=== PATIENT | female | born 1985 | race American Indian/Alaskan Native ===

== ENCOUNTER 2022-03-30 06:03 | Day surgery (SDC) | payer MEDICARE ==
[~2022-03-30 06:03] MED LIST: MIDAZOLAM 2 MG/2 ML INJ IV SCH; SODIUM CHLORIDE 0.9% 1000 ML 1,000 ML IV SCH; ceFAZolin/Water 2 GM/20 ML 2 GM/20 ML SYRINGE IV NR; fentaNYL 100 MCG/2 ML INJ IV PRN
[2022-03-30 07:15] LABS: Hematocrit 50.5 % (30.3-42.9); Mean Corpuscular HGB Conc 32 % (30-34); Mean Corpuscular Volume 87 fl (79-97); Platelet Count 211 K/mm3 (140-440); Red Blood Count 5.79 M/mm3 (3.65-5.03); Red Cell Distribution Width 19.2 % (13.2-15.2)
--- NOTE | 2022-03-30 07:27 | Anesthesia Consultation ---
Anesthesia Consult and Med Hx Date of service: 03/30/22 - Airway Anesthetic Teeth Evaluation: Good ROM Head & Neck: Adequate Mental/Hyoid Distance: Adequate Mallampati Class: Class II Intubation Access Assessment: Possibly Difficult - Pre-Operative Health Status ASA Pre-Surgery Classification: ASA4 Proposed Anesthetic Plan: General (Discussed GA vs regional. Patient has had regional in the past and did not like the experience. Prefers GA.) - Pulmonary Hx Smoking: No Hx Respiratory Symptoms: No - Cardiovascular System Hx Hypertension: No (took midodrine this morning) Hx Coronary Artery Disease: Yes (s/p CABG 2016; EF 40-50% on most recent TTE and stress test 2018) Hx Percutaneous Transluminal Coronary Angioplasty (PTCA): Yes (2018; last dose ASA 03/29/22) Hx Cardia Arrhythmia: No Hx Pacemaker: No Hx Internal Defibrillator: No - Central Nervous System CVA: No Hx Back Pain: Yes Hx Psychiatric Problems: Yes (anxiety) - Gastrointestinal Hx Gastroesophageal Reflux Disease: Yes (controlled with protonix) - Endocrine Hx End Stage Renal Disease: Yes (last HD 03/29/22) Hx Liver Disease: No Hx Insulin Dependent Diabetes: Yes (insulin pump) Hx Thyroid Disease: No - Other Systems Hx Obesity: Yes (BMI 57) - Additional Comments Anesthesia Medical History Comments: Hx mild PONV with previous anesthetics. Most recent cardiac office visit note and cardiac studies reviewed.
[2022-03-30] MEDS ORDERED: LIDOCAINE MPF (2%) 20 MG/1 ML VIAL 5 ML ONE (07:28)
[2022-03-30] MEDS ORDERED: fentaNYL 100 MCG/2 ML INJ ONE (07:28)
[2022-03-30] MEDS ORDERED: ROCURONIUM 50 MG/5 ML INJ IV ONE (07:28)
[2022-03-30] MEDS ORDERED: ONDANSETRON 4 MG/2 ML INJ ONE (07:28)
[2022-03-30] MEDS ORDERED: propofoL 200 MG/20 ML VIAL IV ONE (07:29)
--- NOTE | 2022-03-30 07:29 | Anesthesia Day of Surgery ---
Anesthesia Day of Surgery - Day of Surgery Patient Examined: Yes Patient H&P Reviewed: Yes Patient is NPO: Yes
[2022-03-30 07:32] LABS: Calcium 9.3 mg/dL (8.4-10.2)
[2022-03-30] MEDS ORDERED: HEPARIN 10,000 UNITS/10 ML VIAL ONE ×2 (07:47→09:20)
[2022-03-30] MEDS ORDERED: SODIUM CHLORIDE 0.9% 500 ML 500 ML ONE (07:48)
[2022-03-30] MEDS ORDERED: BUPIVACAINE/PF (0.5%) 5 MG/1 ML 30 ML VIAL INFILTRATI ONE ×2 (07:58→09:16)
[2022-03-30] MEDS ORDERED: VANCOMYCIN/NS 1 GM/250 ML 1 GM/250 ML BAG IV NR (08:00)
[2022-03-30] MEDS ORDERED: VANCOMYCIN 2,000 MG in SODIUM CHLORIDE 0.9% 500 ML 500 ML IV SCH (08:00)
[2022-03-30] MEDS ORDERED: ONDANSETRON 4 MG/2 ML INJ IV PRN (08:30)
[2022-03-30] MEDS ORDERED: HYDROcodone/ACETAMINOPHEN 5-325 MG TAB PO PRN (08:30)
[2022-03-30] MEDS ORDERED: SCOPOLAMINE TRANSDERMAL PATCH 72 HR TD NR (08:30)
[2022-03-30] MEDS ORDERED: fentaNYL 100 MCG/2 ML INJ IV PRN (08:30)
[2022-03-30] MEDS ORDERED: PHENYLEPHRINE/NS 1,000 MCG/10 ML SYRINGE (OR USE) IV ONE (09:10)
[2022-03-30] MEDS ORDERED: PHENYLEPHRINE 10 MG/1 ML INJ SDV ONE (09:12)
[2022-03-30] MEDS ORDERED: HEPARIN 10,000 UNITS/10 ML VIAL IR ONE (09:15)
[2022-03-30] MEDS ORDERED: SODIUM CHLORIDE 0.9% 500 ML IVPB IRRIGATION ONE (09:16)
[2022-03-30] MEDS ORDERED: SODIUM CHLORIDE 0.9% IRR 1,500 ML BOTTLE IR ONE (09:16)
[2022-03-30] MEDS ORDERED: GLYCOPYRROLATE 0.4 MG/2 ML INJ ONE (09:40)
[2022-03-30] MEDS ORDERED: NEOSTIGMINE 10MG/10 ML INJ MDV ONE (09:40)
--- NOTE | 2022-03-30 10:09 | Short Stay Summary ---
Short Stay Documentation Date of service: 03/30/22 Narrative H&P: See H&P - History H&P: obtained from office - Allergies and Medications Current Medications: Allergies amoxicillin Allergy (Verified 03/23/22 14:56) Shortness of Breath clindamycin Allergy (Verified 03/23/22 14:56) Shortness of Breath Sulfa (Sulfonamide Antibiotics) Allergy (Verified 03/23/22 14:56) Nausea Home Medications Medication Instructions Recorded Confirmed Last Taken Type Aspirin [Adult Aspirin] 81 mg PO DAILY 03/23/22 03/23/22 Unknown History Atorvastatin Calcium [Lipitor] 80 mg PO DAILY 03/23/22 03/23/22 Unknown History Cinacalcet HCl [Sensipar] 90 mg PO 3XW 03/23/22 03/23/22 Unknown History Ezetimibe [Zetia] 10 mg PO DAILY 03/23/22 03/23/22 Unknown History Ferric Citrate (Nf) [Auryxia] 210 mg PO TIDWM 03/23/22 03/23/22 Unknown History Fludrocortisone [Florinef Tab] 0.1 mg PO 3XW 03/23/22 03/23/22 Unknown History Insulin Pump Cartridge [Omnipod] 1 each SQ DAILY 03/23/22 03/23/22 Unknown History Midodrine HCl 10 mg PO 3XW 03/23/22 03/23/22 Unknown History Nitroglycerin [Nitrostat] 0.4 mg SL Q5M PRN 03/23/22 03/23/22 Unknown History Pantoprazole Sodium [Protonix] 40 mg PO DAILY 03/23/22 03/23/22 Unknown History Pregabalin [Lyrica] 50 mg PO HS 03/23/22 03/23/22 Unknown History Promethazine [Phenergan] 25 mg PO Q6HR PRN 03/23/22 03/23/22 Unknown History Zolpidem [Ambien] 10 mg PO QHS PRN 03/23/22 03/23/22 Unknown History oxyCODONE /ACETAMINOPHEN [Percocet 1 tab PO Q6HR PRN 03/23/22 03/23/22 Unknown History 5/325] Active Medications Hydrocodone Bitart/Acetaminophen (Hydrocodone/Acetaminophen 5-325 Mg Tab) 2 each PO ONCE PRN PRN Reason: Pain, Moderate (4-6) Stop: 03/30/22 18:00 Fentanyl (Fentanyl 100 Mcg/2 Ml Inj) 100 mcg IV ONCE PRN PRN Reason: sedation for nerve block Fentanyl (Fentanyl 100 Mcg/2 Ml Inj) 50 mcg IV Q5MIN PRN PRN Reason: Pain , Severe (7-10) Stop: 03/30/22 18:00 Sodium Chloride (Nacl 0.9% 1000 Ml) 1,000 mls @ 42 mls/hr IV DIRECT BENJAMIN Stop: 03/30/22 23:59 Cefazolin Sodium 3 gm/ Sodium (Chloride) 100 mls @ 100 mls/30 min IV PREOP BENJAMIN; Protocol Vancomycin HCl 2,000 mg/ (Sodium Chloride) 540 mls @ 250 mls/hr IV ONCE@0800 BENJAMIN Stop: 03/30/22 17:00 Midazolam HCl (Midazolam 2 Mg/2 Ml Inj) 2 mg IV PREOP BENJAMIN Ondansetron HCl (Ondansetron 4 Mg/2 Ml Inj) 4 mg IV ONCE PRN PRN Reason: Nausea And Vomiting Stop: 03/30/22 17:00 Scopolamine (Scopolamine Transdermal Patch 72 Hr) 1 each TD PREOP NR Stop: 03/30/22 18:00 - Brief post op/procedure progress note Date of procedure: 03/30/22 Pre-op diagnosis: End-Stage Renal Disease Post-op diagnosis: same Procedure: Creation of Right Radiocephalic Arteriovenous Fistula Anesthesia: NICA Surgeon: REYNA GUZMÁN Estimated blood loss: minimal Pathology: none Condition: stable - Disposition Condition at discharge: Good Disposition: 01 HOME / SELF CARE / HOMELESS Short Stay Discharge Plan Activity: other (No heavy lifting with right arm for 2 weeks. Use stress ball with right hand as often as possible.) Wound: open to air, keep clean and dry, other (Okay to wash the right arm incision with soap and water but do not soak in water for 2 weeks.) Follow up with: REYNA GUZMÁN MD [Staff Physician] - 14 Days Prescriptions: HYDROcodone/APAP 7.5-325 [[place] 7.5/325] 1 each PO Q6HR PRN #30 tablet PRN Reason: Pain
--- NOTE | 2022-03-30 10:14 | Operative Report ---
Operative Report Operative Report: Date of procedure: 03/30/2022 Pre-operative diagnosis: End-Stage Renal Disease Post-operative diagnosis: End-Stage Renal Disease Procedure(s): Creation of Right Medardo Fistula Surgeon: Meek Acuña MD Project Accountant: None Anesthesia: General Endotracheal Anesthesia EBL: Minimal Counts: Correct Complications: None Condition: Stable Findings: Successful creation of right arm AV fistula with palpable thrill at the completion of the case. Specimen: None Indication: The patient is a 36-year-old female with a history of end-stage renal disease who is on hemodialysis through a permacath secondary to recent thrombosis of her right arm brachiobasilic arteriovenous fistula. She is in need of long-term dialysis access and an ultrasound demonstrated she had adequate cephalic vein for creation of a radiocephalic arteriovenous fistula. She was given the risk, benefits, and alternative procedures and consented to the procedure. Description of Procedure: The patient was brought to the operating room and laid in supine position. After timeout was performed general endotracheal anesthesia was achieved and her right arm was prepped and draped in normal sterile fashion. A longitudinal incision was then created on the distal wrist, centered between the cephalic vein and the radial artery. The dissection was carried down to the radial artery using sharp dissection and the radial artery was dissected circumferentially and controlled with vessel loops. The cephalic vein was then dissected circumferentially, ligating side branches with 3-0 silk ties and dividing them. The cephalic vein was then divided distally transpose to the radial artery. A 3 Gallito was then advanced through the cephalic vein proximally to ensure patency. The vein was then flushed with heparinized saline and control of the bulldog clamp. The patient was systemically heparinized with 3000 units of heparin IV and the radial artery clamped with DeBakey clamps. An arteriotomy was then created using an 11 blade and Zazueta scissors. An end-to-side anastomosis was created between the cephalic vein and the radial artery using a single 6-0 Prolene in running fashion. Prior to completing the anastomosis I flashed the artery both retrograde and antegrade and advanced a 3 Gallito into the proximal portion of the artery to break the spasm. I then completed the anastomosis and removed all clamps allowing flow into the fistula which had a palpable thrill. Hemostasis within the wound was achieved with a combination of manual pressure and Quick Clot. Once hemostasis was achieved the wounds were closed in 2 layers using a 3-0 Vicryl in running fashion in the deep dermal layers, 4-0 Monocryl in a running fashion the subcuticular layer, and Dermabond as a dressing. The patient tolerated the procedure well. All sponge, needle, and instrument counts were correct. The patient was taken to the recovery area in stable condition.
[2022-03-30 13:05] VITALS: BP 145/65
--- NOTE | 2022-03-30 14:24 | Post Anesthesia Evaluation ---
- Post Anesthesia Evaluation Patient Participated: Yes Airway Patent: Yes Stable Respiratory Function: Yes Nausea/Vomiting: No Temp > 96.8F: Yes Pain Manageable: Yes Adequeate Hydration: Yes Anesthesia Complications: No
== END 2022-03-30 12:55 | disposition home or self-care (01) ==
LOC: OR 06:03
PROVIDERS: ATTEND Surgery Vascular Surgery
DX: I13.2 Hypertensive heart and chronic kidney disease with heart failure and with stage 5 chronic kidney disease, or end stage renal disease (principal); E11.22 Type 2 diabetes mellitus with diabetic chronic kidney disease; N18.6 End stage renal disease; I50.9 Heart failure, unspecified; I25.10 Atherosclerotic heart disease of native coronary artery without angina pectoris; E78.00 Pure hypercholesterolemia, unspecified; K21.9 Gastro-esophageal reflux disease without esophagitis; E66.9 Obesity, unspecified; F32.9 Major depressive disorder, single episode, unspecified; F41.9 Anxiety disorder, unspecified; D64.9 Anemia, unspecified; Z88.6 Allergy status to analgesic agent; Z88.2 Allergy status to sulfonamides; Z88.8 Allergy status to other drugs, medicaments and biological substances; Z79.899 Other long term (current) drug therapy; Z79.4 Long term (current) use of insulin; Z79.82 Long term (current) use of aspirin; Z95.1 Presence of aortocoronary bypass graft; Z87.01 Personal history of pneumonia (recurrent); Z98.890 Other specified postprocedural states; Z68.43 Body mass index [BMI] 50.0-59.9, adult
CPT/HCPCS: 36415; 36821; 80048; 82962; 85027; J1644; J1815; J2370; J2405; J2704; J2710; J3010; J3370; J3490; J7030; J7040

== ENCOUNTER 2022-05-13 08:00 | Day surgery (SDC) | payer MEDICARE ==
[~2022-05-13 08:00] MED LIST changes: +MIDAZOLAM 2 MG/2 ML INJ IV NR; -MIDAZOLAM 2 MG/2 ML INJ IV SCH; +VANCOMYCIN/NS 1 GM/250 ML 1 GM/250 ML BAG IV NR; -ceFAZolin/Water 2 GM/20 ML 2 GM/20 ML SYRINGE IV NR; -fentaNYL 100 MCG/2 ML INJ IV PRN
--- NOTE | 2022-05-13 08:40 | Anesthesia Consultation ---
Anesthesia Consult and Med Hx Date of service: 05/13/22 - Airway Anesthetic Teeth Evaluation: Good ROM Head & Neck: Adequate Mental/Hyoid Distance: Adequate Mallampati Class: Class II Intubation Access Assessment: Probably Good - Pre-Operative Health Status ASA Pre-Surgery Classification: ASA4 Proposed Anesthetic Plan: General (declines regional/MAC due to bad past experience) - Pulmonary Hx Smoking: No Hx Respiratory Symptoms: No - Cardiovascular System Hx Hypertension: No Hx Coronary Artery Disease: Yes (s/p CABG 2016; EF 40-50% on most recent TTE and stress test 2018) Hx Percutaneous Transluminal Coronary Angioplasty (PTCA): Yes (2018) Hx Peripheral Vascular Disease: Yes - Central Nervous System CVA: No Hx Back Pain: Yes - Gastrointestinal Hx Gastroesophageal Reflux Disease: Yes (controlled with protonix) - Endocrine Hx End Stage Renal Disease: Yes (last HD 05/12/22) Hx Liver Disease: No Hx Insulin Dependent Diabetes: Yes (insulin pump basal rate set at 50% in preop) Hx Thyroid Disease: No - Hematic Hx Anemia: Yes - Other Systems Hx Obesity: Yes (BMI 45) - Additional Comments Anesthesia Medical History Comments: Hx PONV.
[2022-05-13] MEDS ORDERED: fentaNYL 100 MCG/2 ML INJ IV PRN (08:42)
[2022-05-13] MEDS ORDERED: HYDROcodone/ACETAMINOPHEN 5-325 MG TAB PO PRN (08:42)
[2022-05-13] MEDS ORDERED: ONDANSETRON 4 MG/2 ML INJ IV PRN (08:42)
[2022-05-13] MEDS ORDERED: SCOPOLAMINE TRANSDERMAL PATCH 72 HR TD NR ×2 (08:43→09:00)
--- NOTE | 2022-05-13 08:43 | Anesthesia Day of Surgery ---
Anesthesia Day of Surgery - Day of Surgery Patient Examined: Yes Patient H&P Reviewed: Yes Patient is NPO: Yes
[2022-05-13 08:55] LABS: Hematocrit 42.4 % (30.3-42.9); Hemoglobin 14.5 gm/dl (10.1-14.3); Mean Corpuscular HGB Conc 34 % (30-34); Mean Corpuscular Volume 87 fl (79-97); Platelet Count 151 K/mm3 (140-440); Red Cell Distribution Width 19.5 % (13.2-15.2)
[2022-05-13] MEDS ORDERED: propofoL 200 MG/20 ML VIAL IV ONE (09:12)
[2022-05-13] MEDS ORDERED: LIDOCAINE MPF (2%) 20 MG/1 ML VIAL 5 ML ONE (09:12)
[2022-05-13] MEDS ORDERED: fentaNYL 100 MCG/2 ML INJ ONE (09:13)
[2022-05-13 09:29] LABS: Calcium 10.1 mg/dL (8.4-10.2)
[2022-05-13] MEDS ORDERED: SODIUM CHLORIDE 0.9% 500 ML 500 ML ONE (09:39)
[2022-05-13] MEDS ORDERED: HEPARIN 10,000 UNITS/10 ML VIAL ONE (09:39)
[2022-05-13] MEDS ORDERED: BUPIVACAINE/PF (0.5%) 5 MG/1 ML 30 ML VIAL INFILTRATI ONE (09:39)
[2022-05-13] MEDS ORDERED: SODIUM CHLORIDE 0.9% 250ML 250 ML ONE (09:40)
[2022-05-13] MEDS ORDERED: rifAMPin 600 MG VIAL ONE (09:40)
--- NOTE | 2022-05-13 09:48 | Short Stay Summary ---
Short Stay Documentation Date of service: 05/13/22 Narrative H&P: The patient is a 36-year-old female with a history of end-stage renal disease who has had multiple arteriovenous access in bilateral upper extremities. She is currently on hemodialysis through a left internal jugular permacath and requires long-term dialysis access. She recently had creation of a right Medardo arteriovenous fistula that failed shortly after creation. 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 She has a history of hypotension that is contributed to her access failure so I suggested that an axillary to axillary loop graft is her best option. She was given the risk, benefits, and alternative procedures and consented to the procedure. - History Past Medical History: anemia, diabetes, GERD, heart failure, hypertension, hyperlipidemia Past Surgical History: Other (multiple av access creation, CABG x 3, Right BKA, Left AKA) Social history: no significant social history - Allergies and Medications Current Medications: Allergies amoxicillin Allergy (Verified 05/05/22 12:21) Shortness of Breath clindamycin Allergy (Verified 05/05/22 12:21) Shortness of Breath Sulfa (Sulfonamide Antibiotics) Allergy (Verified 05/05/22 12:21) Nausea Home Medications Medication Instructions Recorded Confirmed Last Taken Type Aspirin [Adult Aspirin] 81 mg PO DAILY 03/23/22 05/05/22 03/29/22 09:00 History Atorvastatin Calcium [Lipitor] 80 mg PO DAILY 03/23/22 05/05/22 03/29/22 09:00 History Cinacalcet HCl [Sensipar] 90 mg PO 3XW 03/23/22 05/05/22 03/29/22 09:00 History Ezetimibe [Zetia] 10 mg PO DAILY 03/23/22 05/05/22 03/29/22 09:00 History Ferric Citrate (Nf) [Auryxia] 210 mg PO TIDWM 03/23/22 05/05/22 03/29/22 19:00 History Fludrocortisone [Florinef] 0.1 mg PO 3XW 03/23/22 05/05/22 03/29/22 09:00 History Insulin Pump Cart,Cont Inf,Rf 1 each SQ DAILY 03/23/22 05/05/22 Unknown History [Omnipod Classic Pods (Gen 3)] Midodrine HCl 10 mg PO 3XW 03/23/22 05/05/22 03/30/22 05:00 History Nitroglycerin [Nitrostat] 0.4 mg SL Q5M PRN 03/23/22 05/05/22 Unknown History Pantoprazole Sodium [Protonix] 40 mg PO DAILY 03/23/22 05/05/22 03/30/22 05:00 History Pregabalin [Lyrica] 50 mg PO HS 03/23/22 05/05/22 03/29/22 19:00 History Promethazine [Phenergan] 25 mg PO Q6HR PRN 03/23/22 05/05/22 03/23/22 09:00 History Zolpidem [Ambien] 10 mg PO QHS PRN 03/23/22 05/05/22 03/29/22 19:00 History Active Medications Hydrocodone Bitart/Acetaminophen (Hydrocodone/Acetaminophen 5-325 Mg Tab) 2 each PO ONCE PRN PRN Reason: Pain, Moderate (4-6) Stop: 05/13/22 23:59 Fentanyl (Fentanyl 100 Mcg/2 Ml Inj) 50 mcg IV Q5MIN PRN PRN Reason: Pain , Severe (7-10) Stop: 05/13/22 23:59 Vancomycin HCl (Vancomycin/Ns 1 Gm/250 Ml) 1 gm in 250 mls @ 167.007 mls/hr IV PREOP NR; Protocol Stop: 05/13/22 23:59 Sodium Chloride (Nacl 0.9% 1000 Ml) 1,000 mls @ 42 mls/hr IV DIRECT BENJAMIN Stop: 05/13/22 23:59 Midazolam HCl (Midazolam 2 Mg/2 Ml Inj) 2 mg IV PREOP NR Stop: 05/13/22 23:59 Ondansetron HCl (Ondansetron 4 Mg/2 Ml Inj) 4 mg IV ONCE PRN PRN Reason: Nausea And Vomiting Stop: 05/13/22 23:59 Scopolamine (Scopolamine Transdermal Patch 72 Hr) 1 each TD PREOP NR Stop: 05/13/22 23:00 - Physical exam General appearance: no acute distress Lungs: Normal air movement Breasts: deferred Heart: Regular rate Gastrointestinal: normal Female Genitourinary: deferred Rectal Exam: deferred Extremities: no ischemia, abnormal (right arm incision healed) - Brief post op/procedure progress note Date of procedure: 05/13/22 Pre-op diagnosis: End-Stage Renal Disease Post-op diagnosis: same Procedure: Creation of Left Axillary Artery to Left Axillary Vein Arteriovenous Loop Graft with 7 mm Bovine Artegraft Anesthesia: NICA Surgeon: REYNA GUZMÁN Estimated blood loss: minimal Pathology: list (Portions of previous left arm AV graft) Specimen disposition: discarded Condition: stable - Disposition Condition at discharge: Good Disposition: 01 HOME / SELF CARE / HOMELESS Short Stay Discharge Plan Activity: other (No heavy lifting with left arm for 2 weeks.) Wound: open to air, keep clean and dry, other (Okay to wash the left arm incision with soap and water but do not soak in water for 2 weeks.) Follow up with: REYNA GUZMÁN MD [Staff Physician] - 14 Days Prescriptions: Oxycodone HCl/Acetaminophen [Percocet 7.5/325 mg] 1 each PO Q6HR PRN #30 tab PRN Reason: Pain
[2022-05-13] MEDS ORDERED: HEPARIN 10,000 UNIT/1 ML VIAL IV PRN (10:01)
[2022-05-13] MEDS ORDERED: ePHEDrine SULFATE 50 MG/1 ML INJ ONE (10:45)
[2022-05-13] MEDS ORDERED: HEPARIN 10,000 UNITS/10 ML VIAL IR ONE (11:05)
[2022-05-13] MEDS ORDERED: SODIUM CHLORIDE 0.9% 250 ML IVPB IR ONE (11:06)
[2022-05-13] MEDS ORDERED: SODIUM CHLORIDE 0.9% 500 ML IVPB IRRIGATION ONE (11:06)
[2022-05-13] MEDS ORDERED: rifAMPin 600 MG VIAL IV ONE (11:07)
[2022-05-13] MEDS ORDERED: SODIUM CHLORIDE 0.9% IRR 1,500 ML BOTTLE IR ONE (11:08)
--- NOTE | 2022-05-13 12:58 | Operative Report ---
Operative Report Operative Report: Date of Procedure: 05/13/2022 Pre-operative Diagnosis: End-Stage Renal Disease Post-operative Diagnosis: Same Procedure(s): 1. The Left Axillary Artery to Axillary Vein Arteriovenous Loop Graft with 7 mm Bovine Artegraft Surgeon: Meek Acuña M.D. Customer Trainer: Lionel Anesthesia: Gen. Endotracheal Anesthesia EBL: Minimal Counts: Correct Complications: None Condition: Stable Findings: Successful creation of left arm AV graft with adequate thrill at the completion of the case. Specimen: Portion of indwelling left arm AV graft was discarded Indication: The patient is a 36-year-old female with a history of end-stage renal disease who is in need of long-term dialysis access and has had multiple access creation's in bilateral arms. She has a history of hypotension and requires increased inflow to maintain the graft. I suggested an axillary artery to axillary vein loop graft. She was given the risk, benefits, and alternative procedures and consented to the procedure. Description of Procedure: The patient was brought to the operating room and laid in supine position. After general endotracheal anesthesia was achieved the left arm was prepped and draped in normal sterile fashion. A longitudinal incision was created on the medial aspect of the arm and carried down to the axillary vein using sharp dissection. This was dissected circumferentially and controlled with a vessel loop. I then turned my attention to the axillary artery. The axillary artery was dissected circumferentially and controlled with 2 vessel loops. I used a Elizabeth-Wick tunneler to tunnel the graft in a loop fashion. A counterincision was created, in the mid arm to assist with pulling the graft through the tunnel. I systemically heparinized the patient with 3000 units of heparin IV and then used angled DeBakey clamps to control flow in the axillary artery. I created an arteriotomy using an 11 blade and Zazueta scissors. I then created an end-to-side anastomosis using a 6-0 Prolene in running fashion. After completing the anastomosis I released the clamps allowing flow into the graft, which had adequate flow. I reclamped the graft just distal to the arterial anastomosis. I then cut the venous portion of the graft to length and beveled the end. I controlled the axillary vein with a Satinsky clamp and created a venotomy using an 11 blade and Zazueta scissors. I created an end-to-side anastomosis using a 6-0 Prolene in running fashion. Prior to completing the anastomosis I flashed the vein as well as the arterial inflow of the graft and then reclamped both vessels. I flushed the venotomy with heparinized saline, to clear any thrombus. I then completed the anastomosis and removed all clamps allowing flow into the graft. There was an adequate thrill. Hemostasis was achieved with a combination of Quick Clot and direct pressure. Once hemostasis was achieved both incisions were anesthetized with 0.5% Marcaine and closed in 2 layers using a 3-0 Vicryl, in a running fashion, in the deep dermal layer, and a 4-0 Monocryl, in running fashion, in the subcuticular layer. The wounds were then dressed with Dermabond. The patient tolerated the procedure well. All sponge, needle, and instrument counts were correct. The patient was taken to recovery in stable condition.
[2022-05-13 15:26] VITALS: BP 164/72
== END 2022-05-13 14:35 | disposition home or self-care (01) ==
LOC: OR 08:00
PROVIDERS: ATTEND Surgery Vascular Surgery
DX: I13.2 Hypertensive heart and chronic kidney disease with heart failure and with stage 5 chronic kidney disease, or end stage renal disease (principal); E11.22 Type 2 diabetes mellitus with diabetic chronic kidney disease; N18.6 End stage renal disease; I50.9 Heart failure, unspecified; I25.10 Atherosclerotic heart disease of native coronary artery without angina pectoris; E78.00 Pure hypercholesterolemia, unspecified; K21.9 Gastro-esophageal reflux disease without esophagitis; E66.9 Obesity, unspecified; F32.9 Major depressive disorder, single episode, unspecified; F41.9 Anxiety disorder, unspecified; D64.9 Anemia, unspecified; Z87.01 Personal history of pneumonia (recurrent); Z98.890 Other specified postprocedural states; Z79.84 Long term (current) use of oral hypoglycemic drugs; Z95.1 Presence of aortocoronary bypass graft; Z68.42 Body mass index [BMI] 45.0-49.9, adult
CPT/HCPCS: 36415; 36830; 80048; 82962; 84703; 85027; 86850; 86900; 86901; C1768; J1644; J2250; J2704; J3010; J3370; J3490; J7030; J7040; J7050